=== PATIENT | female | born 1995 | race Caucasian/White ===

== ENCOUNTER 2016-05-17 10:40 | Emergency (ER) | payer MEDICAID ==
[2016-05-17 11:03] VITALS: BP 121/69; PULSE 77; RESP 16; TEMP 98.6; O2SAT 97
[2016-05-17 11:13] LABS: COLOR YELLOW; LEUKOCYTE ESTERASE,URINE NEGATIVE (NEGATIVE); NITRITE,URINE NEGATIVE (NEGATIVE); PH,URINE 6.5 (5.0-7.5)
[2016-05-17 11:36] LABS: BACTERIA 1+ /hpf (NONE SEEN); MUCUS 2+ /lpf (NONE-1+); YEAST OCCASIONAL /hpf (NONE SEEN)
--- NOTE | 2016-05-17 12:55 | UCPHY ---
H & P Patient Type: New Chief Complaint Nursing Narrative: FOR THE PAST 3 WEEKS BACK ACHE AND URINARY SYMPTOMS, WITH HEADACHE. 4 MONTHS POST Time Seen by Provider: 05/17/16 12:20 HPI/ROS: CHIEF COMPLAINT: Dysuria and low back pain HISTORY OF PRESENT ILLNESS: This is a 20-year-old female, 4 months , who is had low back ache, dysuria, urgency, and frequency for the last couple of weeks. She denies fever. She has some lower abdominal pain that she relates to her incision. This pain has not changed recently. She has tried heat and ibuprofen. She has not had any back trauma. She denies leg numbness or weakness. She has not had bowel or bladder incontinence. REVIEW OF SYSTEMS: A ten point review of systems was performed and is negative with the exception of the items mentioned in the HPI. Source: Patient Exam Limitations: No limitations - Personal History LMP (Females 10-55): Now Current Tetanus Diphtheria and Acellular Pertussis (TDAP): Yes Tetanus Vaccine Date: < 10 YEARS - Medical/Surgical History Hx Asthma: No Hx Chronic Respiratory Disease: No Hx Diabetes: No Hx Cardiac Disease: No Hx Renal Disease: No Hx Cirrhosis: No Hx Alcoholism: No Hx HIV/AIDS: No Hx Splenectomy or Spleen Trauma: No Other PMH: MIGRAINES. Tonsilectomy. Removal of cyst from foot. section - Family History Significant Family History: No pertinent family hx - Social History Smoking Status: Never smoked Additional Social History: She is a mail distributor, works at night. She has a 4-month-old child. No tobacco use. - Physical Exam Exam: General Appearance: Alert. Vital signs reviewed. Blood pressure 121/69. Eyes: Pupils equal and round, no conjunctival injection, no discharge. Anicteric. ENT, Mouth: Mucous membranes are moist, no oropharyngeal erythema or edema. Neck: No lymphadenopathy, supple. Respiratory: Lungs are clear to auscultation; no wheezes, rales, or rhonchi. Cardiovascular: Regular rate and rhythm; no murmur, rub, or gallop. Gastrointestinal: Abdomen is soft and with some mild tenderness at the site of her incision, no guarding, no masses or organomegaly, bowel sounds normal. Skin: Warm and dry, no rashes on exposed skin, normal color. Back: Mild bilateral CVA tenderness. No muscle spasm. No tenderness over the vertebral column. Extremities: No lower extremity edema, no calf tenderness or swelling. Neurological: Alert and oriented. Moving all four extremities easily and equally. Psychiatric: Normal affect. Constitutional: Initial Vital Signs Temperature (C) 37 C 05/17/16 10:59 Heart Rate 77 05/17/16 10:59 Respiratory Rate 16 05/17/16 10:59 Blood Pressure 121/69 H 05/17/16 10:59 O2 Sat (%) 97 05/17/16 10:59 O2 Delivery Mode Room Air Allergies/Adverse Reactions: No Known Allergies Allergy (Verified 04/03/14 19:47) Home Medications: Medication Instructions Recorded Azithromycin [Zithromax] 250 mg PO DAILY #4 tab 04/03/14 Cephalexin [Keflex] 500 mg PO BID #10 cap 05/17/16 Medical Decision Making ED Course/Re-evaluation: Urinalysis is positive for bacteria and blood. She does report vaginal bleeding. She is not toxic or ill-appearing. I do not suspect pyelonephritis. She has some mild abdominal pain that she thinks is related to her surgical incision. It is unchanged. Pain is not localized in the right lower quadrant and I do not suspect appendicitis. Nor do I suspect ovarian torsion or ovarian cyst. We discussed the results of her urinalysis, which is positive for bacteria. No nitrates or leukocyte esterase. Urine is being cultured. She has had urinary symptoms for few weeks and I am recommending a trial of antibiotics. She is being started on Keflex. She does not have a primary care physician and she is given a referral name. She has a mild elevation in her blood pressure and is advised to follow up with the primary care physician to have her blood pressure rechecked. - Data Points Laboratory Results: 05/17/16 11:10 Urine Color YELLOW Urine Appearance HAZY Urine pH 6.5 (5.0-7.5) Ur Specific [place] 1.020 (1.002-1.030) Urine Protein NEGATIVE (NEGATIVE) Urine Ketones TRACE H (NEGATIVE) Urine Blood 1+ H (NEGATIVE) Urine Nitrate NEGATIVE (NEGATIVE) Urine Bilirubin NEGATIVE (NEGATIVE) Urine Urobilinogen 0.2 EU (0.2-1.0) Ur Leukocyte Esterase NEGATIVE (NEGATIVE) Urine RBC 3-5 H /hpf (0-3) Urine WBC 1-3 /hpf (0-3) Ur Epithelial Cells 1+ /lpf (NONE-1+) Urine Bacteria 1+ H /hpf (NONE SEEN) Urine Mucus 2+ H /lpf (NONE-1+) Urine Yeast OCCASIONAL H /hpf (NONE SEEN) Urine Glucose NEGATIVE (NEGATIVE) Departure - Departure Disposition: Home, Routine, Self-Care Clinical Impression: Migraine headache Qualifiers: Qualifier Code: (G43.909) Migraine, unspecified, not intractable, without status migrainosus Urinary tract infection Qualifiers: Qualifier Code: (N30.01) Acute cystitis with hematuria Condition: Good Instructions: Migraine Headache (ED), Urinary Tract Infection in Women (ED) Additional Instructions: Adult Pain & Fever Control: We recommend Acetaminophen (Tylenol) and Ibuprofen (Motrin,Advil) for pain and fever control. When fever is high or pain severe, both drugs can be used at the same time, but at different intervals. Please note the time differences. Your dose is: Acetaminophen 650mg every 4 to 6 hours Ibuprofen 400mg every 8 hours with food OR Note: do not take Acetaminophen with Hydrocodone (Vicodin, Lortab) or Oycodone (Percocet). These medications also contain Acetaminophen. No more than 3000mg of Acetaminophen should be taken in 24 hours (for an adult). Take the Keflex twice daily as prescribed for 5 days. I am referring you to Dr. Boggs for primary care if needed. Referrals: Jessie Boggs MD [Medical Doctor] - As per Instructions Prescriptions: Cephalexin [Keflex] 500 mg PO BID #10 cap - PQRS PQRS Measurement: Does not apply.
== END 2016-05-17 13:00 | disposition home or self-care (01) ==
LOC: CED 10:40
DX: N30.01 Acute cystitis with hematuria (principal); Z98.891 History of uterine scar from previous surgery
CPT/HCPCS: 81003-PO; 81015-PO; G0463-PO

== ENCOUNTER 2016-09-26 15:07 | Emergency (ER) | payer MEDICAID ==
[2016-09-26 15:13] VITALS: TEMP 97.9
--- NOTE | 2016-09-26 15:23 | EDPHY ---
H & P Stated Complaint: hard to take deep breath, chest pressure. Time Seen by Provider: 09/26/16 15:16 HPI/ROS: CHIEF COMPLAINT: Chest pain HISTORY OF PRESENT ILLNESS: The patient is a 21-year-old healthy female who comes to the emergency department complaining of midsternal chest pain that is worse with deep inspiration or with palpitation or movement. She began to have a sore throat runny nose and cold symptoms on Thursday. Those symptoms are beginning to resolve but yesterday she began having this aching in her chest. She denies shortness of breath. She denies cough. She does not have any history of cardiac disease. She does not smoke. No recent travel. No recent procedures or surgery. She does not take any medications or hormones. No leg pain or swelling. No history of coagulopathy. REVIEW OF SYSTEMS: Constitutional: denies: chills, fever, recent illness, recent injury EENTM: denies: blurred vision, double vision, nose congestion Respiratory: denies: cough, shortness of breath Cardiac: See HPI denies: irregular heart rate, lightheadedness, palpitations Gastrointestinal/Abdominal: denies: abdominal pain, diarrhea, nausea, vomiting, blood streaked stools Genitourinary: denies: dysuria, frequency, hematuria, pain Musculoskeletal: See HPI Skin: denies: lesions, rash, jaundice, bruising Neurological: denies: headache, numbness, paresthesia, tingling, dizziness, weakness Hematologic/Lymphatic: denies: blood clots, easy bleeding, easy bruising Immunologic/allergic: denies: HIV/AIDS, transplant EXAM: GENERAL: Well-appearing, well-nourished and in no acute distress. HEAD: Atraumatic, normocephalic. EYES: Pupils equal round and reactive to light, extraocular movements intact, sclera anicteric, conjunctiva are normal. ENT: TMs normal, nares patent, oropharynx clear without exudates. Moist mucous membranes. NECK: Normal range of motion, supple without lymphadenopathy or JVD. LUNGS: Breath sounds clear to auscultation bilaterally and equal. No wheezes rales or rhonchi. HEART: Midsternal chest pain reproducible with palpation. Regular rate and rhythm without murmurs, rubs or gallops. ABDOMEN: Soft, nontender, normoactive bowel sounds. No guarding, no rebound. No masses appreciated. BACK: No CVA tenderness, no spinal tenderness, step-offs or deformities EXTREMITIES: Normal range of motion, no pitting or edema. No clubbing or cyanosis. NEUROLOGICAL: Cranial nerves II through XII grossly intact. Normal speech, normal gait. 5/5 strength, normal movement in all extremities, normal sensation PSYCH: Normal mood, normal affect. SKIN: Warm, dry, normal turgor, no visible rashes or lesions. Source: Patient Exam Limitations: No limitations - Personal History Tetanus Vaccine Date: < 10 YEARS - Medical/Surgical History Hx Asthma: No Hx Chronic Respiratory Disease: No Hx Diabetes: No Hx Cardiac Disease: No Hx Renal Disease: No Hx Cirrhosis: No Hx Alcoholism: No Hx HIV/AIDS: No Hx Splenectomy or Spleen Trauma: No Other PMH: MIGRAINES. Tonsilectomy. Removal of cyst from foot. section - Family History Significant Family History: No pertinent family hx - Social History Smoking Status: Never smoked Alcohol Use: Sober Drug Use: None Constitutional: Initial Vital Signs Temperature (C) 36.6 C 09/26/16 15:11 Heart Rate 99 09/26/16 15:11 Respiratory Rate 20 09/26/16 15:11 Blood Pressure 129/107 H 09/26/16 15:11 O2 Sat (%) 99 09/26/16 15:11 O2 Delivery Mode Room Air Allergies/Adverse Reactions: No Known Allergies Allergy (Verified 09/26/16 15:13) Home Medications: Medication Instructions Recorded IBUPROFEN 09/26/16 Ibuprofen 800 mg PO TID PRN #10 tablet 09/26/16 Mucinex 09/26/16 Medical Decision Making - Diagnostics EKG Interpretation: An EKG obtained and was read and documented in trace view. Please see trace view for full reading and report. Sinus rhythm, no acute ischemic changes or signs of right heart strain. Imaging Results: Imaging Impressions Chest X-Ray 09/26/16 15:21 Impression: 1. Chest negative for acute disease. 2. Scoliosis and mild elevation of the right hemidiaphragm. ED Course/Re-evaluation: Patient's pain is reproducible with pain and associated with recent viral infection. Suspect costochondritis but will obtain x-ray and EKG to further rule out pneumonia, PE, acute coronary disease etc. We discussed the patient's EKG and x-ray results which are reassuring. She is happy with this. We discussed anti-inflammatory use. She did take 2 ibuprofen early this morning but has not taken anything since. We discussed follow-up and indications for returning. She understands and agrees with this plan. Differential Diagnosis: Partial list of the Differential diagnosis considered include but were not limited to; costochondritis, pneumonia, bronchitis and although unlikely based on the history and physical exam, I also considered PE, acute coronary disease, pneumothorax, dissection. I discussed these differential diagnoses and the plan with the patient as well as the usual and expected course. The patient understands that the diagnosis is provisional and that in medicine we are not always correct and that further workup is often warranted. Usual and customary warnings were given. All of the patient's questions were answered. The patient was instructed to return to the emergency department should the symptoms at all worsen or return, otherwise to followup with the physician as we discussed. Departure - Departure Disposition: Home, Routine, Self-Care Clinical Impression: Chest wall pain Condition: Good Instructions: Costochondritis (ED) Referrals: Phillip Hall MD [Primary Care Provider] - As per Instructions Prescriptions: Ibuprofen 800 mg PO TID PRN #10 tablet PRN Reason: Pain, Moderate
--- NOTE | 2016-09-26 15:30 | CPEKG ---
Heart Rate: 87 RR Interval: 690 P-R Interval: 136 QRSD Interval: 90 QT Interval: 376 QTC Interval: 453 P [place]: 64 QRS [place]: -19 T Wave [place]: 39 EKG Severity - OTHERWISE NORMAL ECG - EKG Impression: SINUS RHYTHM EKG Impression: BORDERLINE LEFT AXIS DEVIATION Electronically Signed By: Zachariah Quan 26-Sep-2016 15:40:11
[2016-09-26 16:04] VITALS: BP 126/96; PULSE 101; RESP 16; O2SAT 96
== END 2016-09-26 15:53 | disposition home or self-care (01) ==
LOC: CED 15:07
DX: R07.89 Other chest pain (principal)
CPT/HCPCS: 71020-PO